=== PATIENT | female | born 1985 | race Caucasian/White ===

== ENCOUNTER 2018-07-08 13:36 | Emergency (ER) | payer MEDICARE ==
--- NOTE | 2018-07-08 13:37 | ER Inpatient Procedure ---
MARITZA THURMAN MD Jul 08, 2018 13:37
[2018-07-08 13:41] VITALS: BP 110/56
[2018-07-08] MEDS ORDERED: ALBUTEROL 2.5 MG/0.5ML ER ONLY NEB ONE (13:45)
[2018-07-08] MEDS ORDERED: IPRATROPIUM 0.5MG/2.5ML NEB NEB ONE (13:45)
[2018-07-08 14:08] LABS: PLATELET COUNT, AUTOMATED 249 K/uL (150-450)
[2018-07-08] MEDS ORDERED: LIDOCAINE 2% VISC SLN 15ML UDC PO ONE (14:45)
[2018-07-08] MEDS ORDERED: methylPREDNIS SUCC 125 MG/2ML IVP ONE (14:50)
--- NOTE | 2018-07-08 14:59 | ER Report ---
History and Physical Time Seen By MD: 14:00 Hx. of Stated Complaint: 1WEEK CONGESTION AND COUGH, TODAY VOICE IS HOARSE. "COUGHING UP BLACK STUFF" HPI/ROS CHIEF COMPLAINT: Cough congestion HISTORY OF PRESENT ILLNESS: Patient is a 33-year-old female who presents to the emergency department with complaint of cough productive of black sputum". She denies blood. She also states of runny nose and congestion. The symptoms have been present for approximately 14 days. She denies body aches or headache. Patient reports that she is a smoker. She reports no known ill contacts. She denies any contributory past medical history. Patient states that she does have a history of seasonal allergies and has used inhalers in the past. She denies history of COPD or asthma. Patient states that she feels warm but did not actually take her temperature. She is also reporting sore throat. REVIEW OF SYSTEMS: ENT: Sore throat Respiratory: Cough congestion Cardiovascular: No chest pain, no palpitations. Gastrointestinal: No vomiting, no abdominal pain. Musculoskeletal: No back pain. Allergies: Coded Allergies: nystatin (Verified Allergy, Unknown, 07/08/18) quetiapine (Verified Allergy, Unknown, 07/08/18) tramadol (Verified Allergy, Unknown, 07/08/18) Home Meds Active Scripts Albuterol Sulfate 0.083% (ALBUTEROL SULFATE 0.083%) 2.5 Mg/3 Ml Vial.neb, 2.5 MG INH Q6H for cough, #1 BOX 0 Refills Prov:MARITZA MANRIQUE MD 07/08/18 Benzonatate 100 Mg Cap (TESSALON PERLE 100 MG CAP) 100 Mg Capsule, 100 MG PO TID for cough, #15 CAP 0 Refills Prov:MARITZA MANRIQUE MD 07/08/18 Prednisone (PREDNISONE) 20 Mg Tablet, 60 MG PO QDAY, #12 TAB 0 Refills first dose on 07/09/18 Prov:MARITZA MANRIQUE MD 07/08/18 Azithromycin (ZITHROMAX) 250 Mg Tablet, 1 TAB PO QDAY, #4 TAB 0 Refills first dose on 07/09/18 Prov:MARITZA MANRIQUE MD 07/08/18 Past Medical/Surgical History Denies any significant past medical history Smoking Status: Current: Every Day Smoker Hx Substance Use Disorder: Yes (MARIJUANA) Hx Alcohol Use: Yes (SELDOM ) Constitutional Vital Sign - Last 24 Hours 07/08/18 07/08/18 07/08/18 07/08/18 13:40 13:41 13:51 14:06 Temp 97.7 Pulse 118 ??? 126 Resp 22 37 B/P (MAP) 110/56 (74) 110/56 Pulse Ox 92 93 O2 Delivery Room Air 07/08/18 07/08/18 07/08/18 07/08/18 14:10 14:10 14:21 14:36 Pulse 96 93 103 Resp 18 15 37 Pulse Ox 92 97 95 O2 Delivery Room Air 07/08/18 07/08/18 07/08/18 14:51 15:06 15:21 Pulse 97 ??? 103 Resp 17 Pulse Ox 100 90 Physical Exam General Appearance: The patient is alert, has no immediate need for airway protection and no signs of toxicity. Eyes: Pupils equal and round no pallor or injection. ENT, Mouth: Mucous membranes are moist. Erythematous pharynx without exudate or palatal petechiae Respiratory: No retractions are noted patient has dry hacking cough. Audible wheeze on exam. Cardiovascular: Regular rate and rhythm. Gastrointestinal: Abdomen is soft and non tender, no masses, bowel sounds normal. Neurological: Awake and alert Skin: Warm and dry, no rashes. Musculoskeletal: Neck is supple non tender. Extremities are nontender, nonswollen and have full range of motion. Medical Decision Making Data Points Result Diagram: 07/08/18 1400 07/08/18 1400 Laboratory Hematology Test 07/08/18 13:45 07/08/18 14:00 07/08/18 14:37 Influenza Virus Type A (PCR) Negative (NEGATIVE) Influenza Virus Type B (PCR) Negative (NEGATIVE) Red Blood Count 4.48 M/uL (4.17-5.56) Mean Corpuscular Volume 96.8 fL (80.0-96.0) Mean Corpuscular Hemoglobin 33.7 pg (26.0-33.0) Mean Corpuscular Hemoglobin Concent 34.8 g/dL (32.0-36.0) Red Cell Distribution Width 13.8 % (11.5-14.5) Mean Platelet Volume 8.3 fL (7.2-11.1) Neutrophils (%) (Auto) 73.1 % (39.4-72.5) Lymphocytes (%) (Auto) 19.6 % (17.6-49.6) Monocytes (%) (Auto) 5.9 % (4.1-12.4) Eosinophils (%) (Auto) 0.9 % (0.4-6.7) Basophils (%) (Auto) 0.5 % (0.3-1.4) Nucleated RBC Relative Count (auto) 0.0 /100WBC Neutrophils # (Auto) 7.1 K/uL (2.0-7.4) Lymphocytes # (Auto) 1.9 K/uL (1.3-3.6) Monocytes # (Auto) 0.6 K/uL (0.3-1.0) Eosinophils # (Auto) 0.1 K/uL (0.0-0.5) Basophils # (Auto) 0.0 K/uL (0.0-0.1) Nucleated RBC Absolute Count (auto) 0.00 K/uL Sodium Level 138 mmol/L (137-145) Potassium Level 3.8 mmol/L (3.5-5.0) Chloride Level 104 mmol/L (98-107) Carbon Dioxide Level 24 mmol/L (22-31) Blood Urea Nitrogen 13 mg/dl (7-18) Creatinine 0.90 mg/dl (0.52-1.04) Glomerular Filtration Rate Calc > 60.0 Random Glucose 106 mg/dl (75-110) Calcium Level 9.0 mg/dl (8.4-10.2) Total Bilirubin 0.6 mg/dl (0.2-1.3) Aspartate Amino Transf (AST/SGOT) 38 U/L (0-35) Alanine Aminotransferase (ALT/SGPT) 28 U/L (0-56) Alkaline Phosphatase 54 U/L (0-126) Total Protein 7.0 g/dl (6.3-8.2) Albumin 4.4 g/dl (3.5-5.0) Human Chorionic Gonadotropin, Qual Negative (NEGATIVE) Group A Streptococcus (PCR) Negative (NEGATIVE) Chemistry Test 07/08/18 13:45 07/08/18 14:00 07/08/18 14:37 Influenza Virus Type A (PCR) Negative (NEGATIVE) Influenza Virus Type B (PCR) Negative (NEGATIVE) White Blood Count 9.8 k/uL (4.5-11.0) Red Blood Count 4.48 M/uL (4.17-5.56) Hemoglobin 15.1 g/dL (12.0-16.0) Hematocrit 43.4 % (34.0-47.0) Mean Corpuscular Volume 96.8 fL (80.0-96.0) Mean Corpuscular Hemoglobin 33.7 pg (26.0-33.0) Mean Corpuscular Hemoglobin Concent 34.8 g/dL (32.0-36.0) Red Cell Distribution Width 13.8 % (11.5-14.5) Platelet Count 249 K/uL (150-450) Mean Platelet Volume 8.3 fL (7.2-11.1) Neutrophils (%) (Auto) 73.1 % (39.4-72.5) Lymphocytes (%) (Auto) 19.6 % (17.6-49.6) Monocytes (%) (Auto) 5.9 % (4.1-12.4) Eosinophils (%) (Auto) 0.9 % (0.4-6.7) Basophils (%) (Auto) 0.5 % (0.3-1.4) Nucleated RBC Relative Count (auto) 0.0 /100WBC Neutrophils # (Auto) 7.1 K/uL (2.0-7.4) Lymphocytes # (Auto) 1.9 K/uL (1.3-3.6) Monocytes # (Auto) 0.6 K/uL (0.3-1.0) Eosinophils # (Auto) 0.1 K/uL (0.0-0.5) Basophils # (Auto) 0.0 K/uL (0.0-0.1) Nucleated RBC Absolute Count (auto) 0.00 K/uL Glomerular Filtration Rate Calc > 60.0 Calcium Level 9.0 mg/dl (8.4-10.2) Total Bilirubin 0.6 mg/dl (0.2-1.3) Aspartate Amino Transf (AST/SGOT) 38 U/L (0-35) Alanine Aminotransferase (ALT/SGPT) 28 U/L (0-56) Alkaline Phosphatase 54 U/L (0-126) Total Protein 7.0 g/dl (6.3-8.2) Albumin 4.4 g/dl (3.5-5.0) Human Chorionic Gonadotropin, Qual Negative (NEGATIVE) Group A Streptococcus (PCR) Negative (NEGATIVE) EKG/Imaging Imaging FACILITY: [facility] PATIENT NAME: Kay Rodriguez : 1985 MR: [id number] V: [id number] EXAM DATE: [id number] ORDERING PHYSICIAN: MARITZA MANRIQUE TECHNOLOGIST: Location: [facility] [place] Patient: Kay Rodriguez : 1985 Visit/Account:[id number] Date of Sevice: 07/08/2018 CHEST PA LAT Indication: cough Comparison: None. Findings: Lungs: There is a 9 mm nodule in the right upper lobe, with ill-defined borders. Remaining lung parenchyma is clear. Mediastinum/pulmonary vasculature: Heart size and pulmonary vasculature are normal. Bones/soft tissues: Normal. IMPRESSION: Possible 9 mm nodule right upper lobe. In a 33-year-old patient, this may represent a vessel on and, or early pneumonia. Recommend follow-up chest x-ray i n one to 2 months. This was called by Dr. Smith to MARITZA MANRIQUE on 07/08/2018 3:35 PM Report Dictated By: Ric Smith at 07/08/2018 3:35 PM Report E-Signed By: Ric Smith at 07/08/2018 3:40 PM WSN:[id number] ED Course/Re-evaluation ED Course Plan at this time will be 1 hour long albuterol nebulizer with IV Solu-Medrol 125 mg. I will check influenza CBC electrolytes and perform chest x-ray. Peak flow was 300 L/m predicted was 488 based on gender and height. This would be 60% of predicted. Decision to Disposition Date: Jul 08, 2018 Decision to Disposition Time: 15:43 Depart Departure Latest Vital Signs Vital Signs Date Time Temp Pulse Resp B/P (MAP) Pulse Ox O2 Delivery O2 Flow Rate FiO2 07/08/18 15:21 103 90 07/08/18 14:51 17 07/08/18 14:10 Room Air 07/08/18 13:41 97.7 110/56 Impression: Primary Impression: Reactive airway disease Additional Impression: Pneumonia Condition: Improved Disposition: HOME OR SELF-CARE Referrals: HEATH YAP MD New Scripts Albuterol Sulfate 0.083% (ALBUTEROL SULFATE 0.083%) 2.5 Mg/3 Ml Vial.neb 2.5 MG INH Q6H for cough, #1 BOX 0 Refills Prov: MARITZA MANRIQUE MD 07/08/18 Benzonatate 100 Mg Cap (TESSALON PERLE 100 MG CAP) 100 Mg Capsule 100 MG PO TID for cough, #15 CAP 0 Refills Prov: MARITZA MANRIQUE MD 07/08/18 Prednisone (PREDNISONE) 20 Mg Tablet 60 MG PO QDAY, #12 TAB 0 Refills first dose on 07/09/18 Prov: MARITZA MANRIQUE MD 07/08/18 Azithromycin (ZITHROMAX) 250 Mg Tablet 1 TAB PO QDAY, #4 TAB 0 Refills first dose on 07/09/18 Prov: MARITZA MANRIQUE MD 07/08/18 Departure Forms: ER Transition Record, Home Oxygen, Nebulizer RX, Home Oxygen Company Chosen by Patient: Durable Medical Equipment-Oxygen: Nebulizer Reason for Use/Diagnosis: acute bronchitis with reactive airway diseae Start Date of the Order: Jul 08, 2018 Route of Administration (if applicable): Other Duration Home O2 Required: 7 Duration Units: Days Room Air Oxygen Saturation: 92 ER Prescribing Physician's Name: Maritza Manrique NPI Numbers for Local ER MDs: Burton [id number] Medications Reconciliation, Off Work/School Form, School or Work Release?: Work Number of days to be released: 3 Patient Portal Information Patient Instructions: Bacterial Pneumonia (ED) Additional Instructions: Your x-ray today shows suspected pneumonia, it is recommended that you follow- up in 2-3 months for repeat imaging study such as a chest x-ray to verify improvement and resolution. If her symptoms worsen at any time he should return to the emergency department for reevaluation. Use your albuterol nebulizer every 6 hours for the next 72 hours then every 6 hours as needed for cough or shortness of breath Make an appointment with the primary care provider to establish care and to have a repeat chest x-ray performed in the next 2-3 months. 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 Problem Qualifiers Primary Impression: Reactive airway disease Asthma severity: moderate Asthma persistence: persistent Asthma complication type: with acute exacerbation Qualified Codes: J45.41 - Moderate persistent asthma with (acute) exacerbation Additional Impression: Pneumonia Pneumonia type: due to unspecified organism Laterality: right Lung location: lower lobe of lung Qualified Codes: J18.1 - Lobar pneumonia, unspecified organism MARITZA MANRIQUE MD Jul 08, 2018 14:59
[2018-07-08] MEDS ORDERED: cefTRIAXone 1 GM VIAL IVP ONE (15:25)
[2018-07-08] MEDS ORDERED: AZITHROMYCIN 250 MG TAB PO ONE (15:25)
[2018-07-08] MEDS ORDERED: AZIT-1 PO (15:35)
[2018-07-08] MEDS ORDERED: PRED20TA6 PO (15:35)
[2018-07-08] MEDS ORDERED: ALBU2.5V36 INH (15:36)
[2018-07-08] MEDS ORDERED: BENZ100C4 PO (15:36)
--- NOTE | 2018-07-08 15:43 | RADIOLOGY IMAGING REPORT ---
FACILITY: [facility] - [place] PATIENT NAME: Kay Rodriguez : 1985 MR: [id number] V: [id number] EXAM DATE: ORDERING PHYSICIAN: MARITZA THURMAN TECHNOLOGIST: Location: Patient: Kay Rodriguez : 1985 Visit/Account:[id number] Date of Sevice: 07/08/2018 CHEST PA LAT Indication: cough Comparison: None. Findings: Lungs: There is a 9 mm nodule in the right upper lobe, with ill-defined borders. Remaining lung paren chyma is clear. Mediastinum/pulmonary vasculature: Heart size and pulmonary vasculature are normal. Bones/soft tissues: Normal. IMPRESSION: Possible 9 mm nodule right upper lobe. In a 33-year-old patient, this may represent a vessel on and, or early pneumonia. Recommend follow-up chest x-ray in one to 2 months. This was called by Dr. Smith to MARITZA THURMAN on 07/08/2018 3:35 PM Report Dictated By: Ric Smith at 07/08/2018 3:35 PM Report E-Signed By: Ric Smith at 07/08/2018 3:40 PM WSN:[id number]
== END 2018-07-08 15:57 | disposition home or self-care (01) ==
LOC: ER 13:43
DX: J45.41 Moderate persistent asthma with (acute) exacerbation (principal); J18.1 Lobar pneumonia, unspecified organism
CPT/HCPCS: 71046; 84703; 85025; 87502; 87653; 94640; 96374; 96375; 99284; A9270; J0696; J2930; J7644; Q0144; 82040; 82247; 82310; 82374; 82435; 82565; 82947; 84075; 84132; 84155; 84295; 84450; 84460; 84520; J7611